=== PATIENT | female | born 1965 | race Caucasian/White ===

== ENCOUNTER 2020-03-04 18:33 | Emergency (ER) | payer OTHER ==
[2020-03-04] MEDS: Acetaminophen/HYDROcodone 325-10 MG Tab PO ONE (19:09)
--- NOTE | 2020-03-04 19:24 | CR ---
[id number] RAD/RAD Chest PA And Lateral EXAM: FRONTAL AND LATERAL CHEST INDICATION: FELL FROM STANDING HEIGHT, RT ANTERIOR LOWER RIB PAIN COMPARISON: None. DISCUSSION: Hypoinflation with mild central vascular congestion and basilar atelectasis. No infiltrates are identified. No pneumothorax or pleural fluid. The osseous structures are grossly intact. IMPRESSION: 1. No acute findings. Denys Stephens MD 03/04/20 1922 Thank you for allowing us to participate in the care of your patient.
[2020-03-04] MEDS: Take Home: Acetaminophen/HYDROcodone 325-10 MG, 5 Tab Pack PO ONE (19:45)
--- NOTE | 2020-03-09 21:43 | EDM.PDOC ---
ED HPI GENERAL MEDICAL PROBLEM - General Chief Complaint: General Stated Complaint: FELL, POSSIBLE BROKEN RIBS Time Seen by Provider: 03/04/20 18:45 Source of Information: Reports: Patient History Limitations: Reports: No Limitations - History of Present Illness INITIAL COMMENTS - FREE TEXT/NARRATIVE: Pt. states that she tripped in her house, falling and injuring her anterior l ateral R ribs. Pt. states that she is not short of breath. She states that this happened about 30 min before coming in to ER. Denied striking head. No neck pain. Denies any injury other than what is isolated to R side of chest. Pt. states that she is not on any anticoagulation. No hemoptysis. Onset Date: 03/04/20 Location: Reports: Chest Right Thoracic Pain Score (Numeric/FACES): 7 - Related Data Allergies Allergy/AdvReac Type Severity Reaction Status Date / Time No Known Allergies Allergy Verified 03/04/20 18:36 Home Meds: Home Meds . [No Known Home Meds] 03/04/20 [History] Past Medical History - Past Surgical History Musculoskeletal Surgical History: Reports: Knee Replacement Social & Family History - Tobacco Use Tobacco Use Status *Q: Never Tobacco User - Recreational Drug Use Recreational Drug Use: No ED ROS GENERAL - Review of Systems Review Of Systems: See Below Constitutional: Reports: No Symptoms HEENT: Reports: No Symptoms Respiratory: Reports: Pleuritic Chest Pain Cardiovascular: Reports: No Symptoms Endocrine: Reports: No Symptoms GI/Abdominal: Reports: No Symptoms : Reports: No Symptoms Musculoskeletal: Reports: No Symptoms Skin: Reports: No Symptoms Neurological: Reports: No Symptoms Psychiatric: Reports: No Symptoms Hematologic/Lymphatic: Reports: No Symptoms Immunologic: Reports: No Symptoms ED EXAM, GENERAL - Physical Exam Exam: See Below Exam Limited By: No Limitations General Appearance: Alert, WD/WN, No Apparent Distress Head: Atraumatic, Normocephalic Neck: Normal Inspection, Supple, Non-Tender Respiratory/Chest: No Respiratory Distress, Lungs Clear, Normal Breath Sounds, No Accessory Muscle Use Cardiovascular: Normal Peripheral Pulses, Regular Rate, Rhythm, No JVD, No Murmur Peripheral Pulses: 4+: Radial (L) GI/Abdominal: Soft, Non-Tender, No Distention, No Mass (Female) Exam: Deferred Rectal (Female) Exam: Deferred Back Exam: Normal Inspection, Full Range of Motion Extremities: Normal Inspection, Normal Range of Motion, Non-Tender, No Pedal Edema, Normal Capillary Refill Neurological: Alert, Oriented, CN II-XII Intact, Normal Cognition, Normal Gait, Normal Reflexes, No Motor/Sensory Deficits Psychiatric: Normal Affect, Normal Mood Skin Exam: Warm, Dry, Intact, Normal Color, No Rash Lymphatic: No Adenopathy Course - Vital Signs Last Recorded V/S: Last Vital Signs Temp 36.9 C 03/04/20 18:39 Pulse 79 03/04/20 18:39 Resp 20 03/04/20 18:39 BP 144/66 H 03/04/20 18:39 Pulse Ox 98 03/04/20 18:39 - Orders/Labs/Meds Meds: Medications Discontinued Medications Generic Name Dose Route Start Last Admin Trade Name Jovany PRN Reason Stop Dose Admin Hydrocodone Bitart/Acetaminophen 1 tab 03/04/20 18:53 03/04/20 19:09 [place] 325-10 Mg PO 03/04/20 18:54 1 tab ONETIME ONE Administration Hydrocodone Bitart/Acetaminophen 1 packet 03/04/20 19:41 03/04/20 19:45 Take Home: Acetaminophen/Hydrocodone 325-10mg PO 03/04/20 19:42 1 packet ONETIME ONE Administration - Radiology Interpretation Free Text/Narrative:: No fractures noted on chest x-ray Departure - Departure Time of Disposition: 19:45 Disposition: Home, Self-Care 01 Clinical Impression: Chest wall contusion - Discharge Information Instructions: Acetaminophen; Hydrocodone tablets or capsules, Head Injury, Adult, Rib Contusion Referrals: Ruth Ann Nava PA-C [Primary Care Provider] - Forms: ED Department Discharge Additional Instructions: [place] 10/325mg 1 every 4-6 hours as needed for pain Ice painful areas Recheck in clinic in 7-10 days. Return to ER if you have increased shortness of breath, confusion, trouble walking, speech problems, or other worrisome signs/symptoms. Sepsis Event Note (ED) - Evaluation Sepsis Screening Result: No Definite Risk - Problem List Review Problem List Initiated/Reviewed/Updated: Yes - Assessment/Plan Plan: [place] 10/325mg 1 every 4-6 hours as needed for pain Ice painful areas Recheck in clinic in 7-10 days. Return to ER if you have increased shortness of breath, confusion, trouble walking, speech problems, or other worrisome signs/symptoms.
== END 2020-03-04 19:58 | disposition home or self-care (01) ==
LOC: VM.ED 18:33
DX: S20.211A Contusion of right front wall of thorax, initial encounter (principal); W01.0XXA Fall on same level from slipping, tripping and stumbling without subsequent striking against object, initial encounter; Y92.009 Unspecified place in unspecified non-institutional (private) residence as the place of occurrence of the external cause
CPT/HCPCS: 71046; 99283; 99283-25; A9270-GY

== ENCOUNTER 2024-07-10 13:59 | Emergency (ER) | payer OTHER ==
[2024-07-10] MEDS ORDERED: Sodium Chloride 0.9% 10 ML Syringe FLUSH PRN (14:31)
[2024-07-10 14:38] LABS: BASOPHILS PERCENT AUTO 0.3 % (0.2-1.2); EOSINOPHILS ABSOLUTE AUTO 0.2 x10^3/uL (0.0-0.5); EOSINOPHILS PERCENT AUTO 1.8 % (0.0-4.0); HEMOGLOBIN 8.5 g/dL (12.0-16.0); IMMATURE GRAN ABSOLUTE AUTO 0.02 x10^3/uL (0.00-0.07); LYMPHOCYTES PERCENT AUTO 21.1 % (25.0-50.0); MEAN CORPUSCULAR HEMOGLOBIN 19.9 pg (26.0-32.0); MEAN CORPUSCULAR HGB CONC 27.4 g/dL (32.0-36.0); MEAN CORPUSCULAR VOLUME 72.4 fL (78.0-93.0); MONOCYTES PERCENT AUTO 10.2 % (2.0-11.0); NEUTROPHILS ABSOLUTE AUTO 6.3 x10^3/uL (1.8-7.7); NEUTROPHILS PERCENT AUTO 66.4 % (50.0-80.0); PLATELET COUNT,PLT 251 x10^3/uL (130-400); RED BLOOD CELL COUNT 4.28 x10^6/uL (4.00-5.50); WHITE BLOOD CELL COUNT,WBC 9.5 x10^3/uL (4.0-10.0)
[2024-07-10 15:03] LABS: A/G RATIO 0.73; BILIRUBIN TOTAL 0.5 mg/dL (0.2-1.0); CALCIUM 8.3 mg/dL (8.5-10.1); CREATININE 0.9 mg/dL (0.55-1.02); EST CRCL DRUG DOSING (CG) 60.56 mL/min; POTASSIUM,K 4.3 mmol/L (3.5-5.1); PROTEIN TOTAL,TP 7.1 g/dL (6.4-8.2)
[2024-07-10 15:10] LABS: ANION GAP 6.3 mmol/L (5-15)
== END 2024-07-10 16:14 | disposition home or self-care (01) ==
LOC: VM.ED 13:59
DX: I50.9 Heart failure, unspecified (principal); S60.222A Contusion of left hand, initial encounter; N64.4 Mastodynia; X50.9XXA Other and unspecified overexertion or strenuous movements or postures, initial encounter
CPT/HCPCS: 71045; 73130-LT; 80053; 83605; 83880; 84484; 85025; 93005; 99285

== ENCOUNTER 2024-08-08 10:48 | Emergency (ER) | payer OTHER | END 2024-08-08 12:05 | disposition home or self-care (01) | LOC: VM.ED 10:48 | DX: F41.9 Anxiety disorder, unspecified (principal); I10 Essential (primary) hypertension; E78.00 Pure hypercholesterolemia, unspecified; I25.10 Atherosclerotic heart disease of native coronary artery without angina pectoris; E11.9 Type 2 diabetes mellitus without complications; E66.9 Obesity, unspecified; Z79.899 Other long term (current) drug therapy; Z79.82 Long term (current) use of aspirin | CPT/HCPCS: 99283; 99284 ==